=== PATIENT | male | born 1980 | race Caucasian/White ===

== ENCOUNTER 2016-06-06 16:39 | Emergency (ER) | payer SELFPAY ==
--- NOTE | 2016-06-06 17:54 | ED CLINICAL REPORT ---
Clinical Report - Physicians/Mid Levels [facility] [address] [place] [address] 06/06/2016 16:39 Patient: JANET CRUZ Time Seen: 17:10; initial patient contact, initial documentation, patient care assumed. Arrived- By private vehicle. Historian- patient. HISTORY OF PRESENT ILLNESS Chief Complaint: FEVER. This started about 2 days ago and is still present. He has had subjective fever. The patient has had muscle aches and a cough. No chest pain, dyspnea or decreased oral intake. No decreased urine output. Additional history - No known contact with a sick individual. Has not recently been ill. He is not immunocompromised. No organ transplant. No recent absolute neutrophil count. No recent hospitalization. No new medication recently administered. No history of cancer. No history of HIV illness. No indwelling line. No recent travel. No known exposure to an animal. Drug use present. No alcohol recently. No Trevino catheter. chills, tired. Similar symptoms previously: None. Recent medical care: Not recently seen/assessed. REVIEW OF SYSTEMS No difficulty with urination, vomiting, headache or sinus pain. All systems otherwise negative, except as recorded above. PAST HISTORY See nurses notes. PROBLEMS: Substance Abuse. Iv Drug Use. Depression. --22:59 Jareth Billy R.N. SOCIAL HISTORY Light tobacco smoker. Occasional alcohol use. History of heavy IV drug use: heroin, marijuana. Not exposed to second-hand smoke at home. No recent travel. Is a local resident. FAMILY HISTORY Negative. ADDITIONAL NOTES The nursing notes have been reviewed with agreement regarding the chief complaint, HPI, ROS, PMH and patient medications and allergies. PHYSICAL EXAM Vital Signs: 06/06/2016 17:05 BP: 103/63. HR: 73. RR: 18. O2 saturation: 98%. Temp: 98.6 F. Pain level now: 7/10. Have been reviewed as normal and appear to be correct. Appearance: Alert. No acute distress. Eyes: Pupils equal, round and reactive to light. Eyes normal inspection. ENT: Ears normal. Nose normal. Pharynx normal. Uvula midline. Neck: Normal inspection. Neck supple. CVS: Normal heart rate and rhythm. Heart sounds normal. Pulses normal. Respiratory: No respiratory distress. Breath sounds normal. Chest nontender. Back: Normal inspection. Skin: Skin warm and dry. Normal skin color. No rash. Normal skin turgor. Extremities: Extremities exhibit normal ROM. Extremities nontender. Neuro: Oriented X 3. No motor deficit. No sensory deficit. LABS, X-RAYS, AND EKG Laboratory Tests: Rapid Influenza Screen: (TOMMY: 06/06/2016 17:15) ( MsgRcvd 06/06/2016 17:36) Final results SPECIMEN DESCRIPTION: NASAL Test Result Flag Units (Reference) RAPID INFLUENZA SCREEN DATE: 06/06/16 INFLUENZA A: NEGATIVE SCREEN FOR INFLUENZA A INFLUENZA B: NEGATIVE SCREEN FOR INFLUENZA B RAPID INFLUENZA NEGATIVE FOR "A" "B". . PROGRESS AND PROCEDURES Course of Care: 1748. nurse reporting pt does not want blood work done, only work note for the previous 3 days and future, pt is aware work note would be dated for today and next 2. Patient counseled in person regarding the patient's stable condition, test results and diagnosis. Differential Diagnosis: Other possible considerations: flu, uri, viral illness, substance abuse, bronchitis, sinusitis, pneumonia. Above considerations are based on history, physical exam and laboratory data. Differential diagnosis was discussed with patient. Disposition: Discharged home in good and unchanged condition (17:54). Condition: good and stable. CLINICAL IMPRESSION Acute viral rhinitis. No airway obstruction. INSTRUCTIONS Alternate Tylenol (Acetaminophen) and Motrin (Ibuprofen) for fever, temperature greater than 101 degrees orally. Take according to label instructions. Do not work today, for two days. Drink plenty of fluids for the next 24 hours until better. Warnings: GENERAL WARNINGS: Return or contact your physician immediately if your condition worsens or changes unexpectedly, if not improving as expected, or if other problems arise. Specifically return if problem worsens. days off 16, 17, 18. Follow-up: Follow up with your doctor in about three days as needed. Call for an appointment. Summary of care provided to patient. Understanding of the discharge instructions verbalized by patient. (Electronically signed by Nohemi Aguirre A.R.N.P. 06/06/2016 20:45)
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
--- NOTE | 2016-06-06 17:54 | ED ORDER SUMMARY ---
..... Patient: JANET CRUZ OrderSheet [facility] VisitID: [id number] [address] [place] [address] 35y, M Registration Date/Time: 06/06/2016 ORDER SHEET Weight: 81.6 kg (stated) Allergies: No Known Drug Allergy GENERAL ORDERS: Rapid Influenza Screen (Nasal Pharyngeal) (nasal) Urgent (17:13 06/06/2016 DDean R.N. per protocol) (Ack 17:23 EITANoerner) (17:42 DDean R.N.) CBC w Diff Urgent (17:34 06/06/2016 HBivens A.R.N.P.) (Ack 17:37 EITANoerner) (17:52 HBivens A.R.N.P.) (Cancelled: Other17:52 HBivens A.R.N.P.) CMP Urgent (17:34 06/06/2016 HBivens A.R.N.P.) (Ack 17:37 EITANoerner) (17:52 HBivens A.R.N.P.) (Cancelled: Other17:52 HBivens A.R.N.P.) MEDICATION ORDERS: IV FLUIDS: IV NS : initial bolus 1000 mL (1000 mL/hr), then none - (NOW) (17:33 06/06/2016 HBivens A.R.N.P.) (Ack 17:42 DDean R.N.) (Cancelled: Other17:52 HBivens A.R.N.P.) IV Saline Lock (17:34 06/06/2016 HBivens A.R.N.P.) (Ack 17:42 DDean R.N.) (Cancelled: Other17:52 HBivens A.R.N.P.) ORDER SHEET NOTES: [Electronically signed by Nohemi AguirreRYariN.P. (20:45 06/06/2016)] [Electronically signed by Krystal Simpson R.N. (20:52 06/06/2016)] [Electronically locked/signed by Krystal Simpson R.N. (20:52 06/06/2016)]
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
--- NOTE | 2016-06-06 17:54 | ED ORDER SUMMARY ---
..... Patient: JANTE CRUZ OrderSheet [facility] VisitID: [id number] [address] [place] [address] 35y, M Registration Date/Time: 06/06/2016 ORDER SHEET Weight: 81.6 kg (stated) Allergies: No Known Drug Allergy GENERAL ORDERS: Rapid Influenza Screen (Nasal Pharyngeal) (nasal) Urgent (17:13 06/06/2016 DDean R.N. per protocol) (Ack 17:23 EITANoerner) (17:42 DDean R.N.) CBC w Diff Urgent (17:34 06/06/2016 HBivens A.R.N.P.) (Ack 17:37 EITANoerner) (17:52 HBivens A.R.N.P.) (Cancelled: Other17:52 HBivens A.R.N.P.) CMP Urgent (17:34 06/06/2016 HBivens A.R.N.P.) (Ack 17:37 EITANoerner) (17:52 HBivens A.R.N.P.) (Cancelled: Other17:52 HBivens A.R.N.P.) MEDICATION ORDERS: IV FLUIDS: IV NS : initial bolus 1000 mL (1000 mL/hr), then none - (NOW) (17:33 06/06/2016 HBivens A.R.N.P.) (Ack 17:42 DDean R.N.) (Cancelled: Other17:52 HBivens A.R.N.P.) IV Saline Lock (17:34 06/06/2016 HBivens A.R.N.P.) (Ack 17:42 DDean R.N.) (Cancelled: Other17:52 HBivens A.R.N.P.) ORDER SHEET NOTES: [Electronically signed by Nohemi AguirreRYariN.P. (20:45 06/06/2016)] [Electronically signed by Krystal Simpson R.N. (20:52 06/06/2016)] [Electronically locked/signed by Krystal Simpson R.N. (20:52 06/06/2016)]
--- NOTE | 2016-06-06 20:52 | ED MAR SUMMARY ---
..... Medication Administration Record [facility] [address] [place], [place] [id number] Patient: JANET CRUZ Visit ID: [id number] 35y, M Weight: 81.6 kg Height/Length: 73 in BMI: 23.7 ALLERGIES: No Known Drug Allergy
--- NOTE | 2016-06-06 20:52 | ED MAR SUMMARY ---
..... Medication Administration Record [facility] [address], [place] [id number] Patient: JANET CRUZ Visit ID: [id number] 35y, M Weight: 81.6 kg Height/Length: 73 in BMI: 23.7 ALLERGIES: No Known Drug Allergy
--- NOTE | 2016-06-06 20:52 | ED MED RECONCILIATION SUMMARY ---
Patient: JANET CRUZ Medication Reconciliation Report [facility] VisitID: [id number] [address] [place] [address] 35y, M Registration Date/Time: 06/06/2016 Weight: 81.6 kg Height/Length: 73 in. BMI: 23.7 ALLERGIES: No Known Drug Allergy The patient's Home Medications are listed below: NONE. The source(s) of the original Home Medication information: Not obtained. The following Medications were given to the patient in the Emergency Department: None. The following Medications were prescribed to the patient: None.
--- NOTE | 2016-06-06 20:52 | ED DISCHARGE INSTRUCTIONS ---
Patient: JANET CRUZ General Instructions [facility] VisitID: [id number] [address] [place] [address] 35y, M Registration Date/Time: 06/06/2016 Acute viral rhinitis. No airway obstruction. INSTRUCTIONS Alternate Tylenol (Acetaminophen) and Motrin (Ibuprofen) for fever, temperature greater than 101 degrees orally. Take according to label instructions. Do not work today, for two days. Drink plenty of fluids for the next 24 hours until better. Warnings: GENERAL WARNINGS: Return or contact your physician immediately if your condition worsens or changes unexpectedly, if not improving as expected, or if other problems arise. Specifically return if problem worsens. days off 16, 17, 18. Follow-up: Follow up with your doctor in about three days as needed. Call for an appointment. Summary of care provided to patient. Understanding of the discharge instructions verbalized by patient. ADDITIONAL INFORMATION Viral Respiratory Illness [Adult] You have an Upper Respiratory Illness (URI) caused by a virus. This illness is contagious during the first few days. It is spread through the air by coughing and sneezing or by direct contact (touching the sick person and then touching your own eyes, nose or mouth). Most viral illnesses go away within 7-10 days with rest and simple home remedies. Sometimes, the illness may last for several weeks. Antibiotics will not kill a virus and are generally not prescribed for this condition. Home Care: 1) If symptoms are severe, rest at home for the first 2-3 days. When you resume activity, don't let yourself get too tired. 2) Avoid being exposed to cigarette smoke (yours or others). 3) Tylenol (acetaminophen) or ibuprofen (Advil, Motrin) will help fever, muscle aching and headache. (Persons under 18 with fever should not take aspirin since this may cause liver damage.) 4) Your appetite may be poor, so a light diet is fine. Avoid dehydration by drinking 6-8 glasses of fluids per day (water, soft drinks, juices, tea, soup). Extra fluids will help loosen secretions in the nose and lungs. 5) Sfut-wxi-fmuzxgi cold medicines will not shorten the length of time youre sick, but they may be helpful for the following symptoms: cough (Robitussin DM); sore throat (Chloraseptic lozenges or spray); nasal and sinus congestion (Actifed, Sudafed, Chlortrimeton). Follow Up with your doctor or as advised if you dont improve over the next week. Get Prompt Medical Attention if any of the following occur: -- Cough with lots of colored sputum (mucus) or blood in your sputum -- Chest pain, shortness of breath, wheezing or have trouble breathing -- Severe headache; face, neck or ear pain -- Fever over 100.4 F (38.0 C) for more than three days -- You cant swallow due to throat pain Fever Control (Adult) A fever is a natural reaction of the body to an illness. In most cases, the temperature itself is not harmful. It actually helps the body fight infections. A fever does not need to be treated unless you feel very uncomfortable. Home Care If you feel warm, check your temperature. If you feel very uncomfortable and your temperature is at or higher than 100.4F (38C) oral, you may take acetaminophen (Tylenol) every 4 to 6 hours. If you cant take or keep down oral medicine, ask your pharmacist for Tylenol suppositories, which you can get without a prescription. If the fever does not respond to acetaminophen within 1 hour, take ibuprofen (Advil or Motrin). If this works, keep taking the ibuprofen every 6 to 8 hours. Note: If you have chronic liver or kidney disease or ever had a stomach ulcer or GI bleeding, talk with your doctor before using these medications. If either medication alone does not keep the fever down, you may alternate the two medicines every 3 to 4 hours, only if your healthcare provider has instructed you to do so. For example, take Motrin then wait 3 hours, take Tylenol then wait 3 hours, take Motrin, and so on. Follow your healthcare providers instructions exactly. Clothing: Keep clothing light because excess body heat is lost through the skin. The fever will go up if you wear extra layers or wrap in blankets. Fluids: Fever causes the body to lose water through evaporation. Drink plenty of fluids such as water, juice, clear sodas, juan antonio el, or lemonade. Do not use aspirin in anyone under 18 years of age who is ill with a fever. It can cause severe liver damage. Follow Up with your doctor or as advised by our staff if you do not get better after 48 hours. Get Prompt Medical Attention if any of the following occur: Fever does not get better after taking fever medication Fast or difficult breathing Earache, sinus pain, stiff or painful neck, headache, repeated diarrhea or vomiting You feel unusually irritable, drowsy, or confused A rash appears You feel weak or dizzy, or that you might faint You have been given the following additional information: Uri, Viral, No Abx (Adult) Fever Control (Adult) Do not work today, for two days. (Electronically signed by Nhoemi Aguirre A.R.N.P. 06/06/2016 20:45)
--- NOTE | 2016-06-06 20:52 | ED MED RECONCILIATION SUMMARY ---
Patient: JANET CRUZ Medication Reconciliation Report [facility] VisitID: [id number] [address] [place] [address] 35y, M Registration Date/Time: 06/06/2016 Weight: 81.6 kg Height/Length: 73 in. BMI: 23.7 ALLERGIES: No Known Drug Allergy The patient's Home Medications are listed below: NONE. The source(s) of the original Home Medication information: Not obtained. The following Medications were given to the patient in the Emergency Department: None. The following Medications were prescribed to the patient: None.
== END 2016-06-06 18:08 | disposition home or self-care (01) ==
LOC: ED SRH 16:39
DX: J00 Acute nasopharyngitis [common cold] (principal); Z72.0 Tobacco use
CPT/HCPCS: 91400